=== PATIENT | female | born 2000 | race Two or more races ===

== ENCOUNTER 2024-05-02 12:36 | Observation (INO) | payer MEDICAID, OTHER ==
--- NOTE | 2024-05-02 22:11 | DVHDS2 ---
Obstetrics Discharge Summary Obstetrics Discharge Summary Date of Admission: May 02, 2024 Date of Discharge: May 02, 2024 Reason For Admission: Observational/Evaluation ( Status) Procedures: NST, Ultrasound Discharge Diagnosis: Others (early labor requested dc home and return tonight) Discharge Information: Activity (Unrestricted), Diet (Routine), Medications (None), Instructions (kick counts labor and srom precautions), Discharge to (Home), Discarge date (03/02/2024) WILDER GRAHAM DO May 02, 2024 22:11
== END 2024-05-02 15:33 | disposition home or self-care (01) ==
LOC: LDRP 12:36
PROVIDERS: ADMIT Obstetrics & Gynecology; ATTEND Obstetrics & Gynecology
DX: O62.9 Abnormality of forces of labor, unspecified (principal); Z98.890 Other specified postprocedural states; Z79.899 Other long term (current) drug therapy; Z3A.00 Weeks of gestation of pregnancy not specified
CPT/HCPCS: 59025; 81002; G0378

== ENCOUNTER 2024-05-02 18:52 | Inpatient (IN) | payer MEDICAID ==
[~2024-05-02] VITALS: Ht 165.1 cm; Wt 86.2 kg
[2024-05-02] MEDS ORDERED: NALBUPHINE HCL 10 MG/1ml INJECTION IV PRN (20:15)
[2024-05-02] MEDS ORDERED: BUTORPHANOL TARTRATE 2 MG/1 ML VIAL IV PRN ×2 (20:15)
[2024-05-02] MEDS ORDERED: NALBUPHINE HCL 10 MG/1ml INJECTION IM PRN (20:15)
[2024-05-02] MEDS ORDERED: LIDOCAINE 2%HCL (LOCAL ANESTH.) INJ 20ML MDV IJ PRN (20:15)
[2024-05-02 21:10] LABS: Urine Bacteria None Seen /hpf (None Seen); Urine WBC None Seen /hpf (0 - 5)
[2024-05-02] MEDS: LACTATED RINGER'S 1,000 ML IV SCH (21:25)
[2024-05-02 21:28] LABS: Basophils # (auto) 0 10 ^3/uL (0-0.2); Basophils % (auto) 0.1 % (0.0-2.0); Eosinophils # (auto) 0 10 ^3/uL (0-0.8); Eosinophils % (auto) 0.2 % (0.0-7.0); Hematocrit 41.2 % (36.0-46.0); Hemoglobin 13.9 g/dL (12.2-16.2); Lymphocytes % (auto) 13.5 % (10.0-50.0); Mean Corpuscular Hemoglobin 30.2 pg (28.0-32.0); Mean Corpuscular Hgb Conc. 33.7 g/dL (32.0-36.0); Mean Corpuscular Volume 89.5 fL (80.0-100.0); Monocytes # (auto) 1.1 10 ^3/uL (0-1.3); Neutrophils # (auto) 5.6 10 ^3/uL (1.6-8.6); Neutrophils % (auto) 72.2 % (37.0-80.0); Nucleated Red Blood Cells % 0.1 %; Platelet Count (auto) 207 10^3/uL (140-450); Red Blood Cells 4.61 10^6/uL (4.0-5.20); Red Cell Distribution Width 13.4 % (11.8-14.3); White Blood Cell 7.7 10^3/uL (4.4-10.8)
[2024-05-02 21:31] LABS: Urine Blood Negative /uL (Negative); Urine Clarity Clear (Clear); Urine Color Colorless (Yellow); Urine Protein, UAD Negative (Negative); Urine Specific Gravity 1.005 (1.001-1.035); Urine Urobilinogen Normal (Negative); Urine pH 6.5 (5.0-9.0)
[2024-05-02 21:45] LABS: INR 0.94 (0.9-1.15); Partial Thromboplastin Time 27.3 SEC (24.5-34.5)
[2024-05-02] MEDS ORDERED: NALOXONE HCL 0.4 MG/ML VIAL IV ONE (21:45)
[2024-05-02] MEDS ORDERED: ePHEDrine SULFATE 50 MG/ML AMP IV ONE (21:45)
[2024-05-02] MEDS ORDERED: LIDOCAINE HCL 2 %PF INJ 10ML AMP IJ ONE (21:45)
[2024-05-02 21:51] LABS: Alanine Aminotransferase 11 U/L (7-40); Albumin 3.9 g/dL (3.2-4.8); Anion Gap 7 (5-15); Aspartate Aminotransferase 19 U/L (13-40); Calcium 9.6 mg/dL (8.7-10.4); Carbon Dioxide 24 mmol/L (20-31); Chloride 106 mmol/L (98-107); Glucose 90 mg/dL (74-106); Potassium 3.8 mmol/L (3.5-5.1); Sodium 137 mmol/L (136-145)
[2024-05-02 21:52] LABS: Bilirubin, Total 0.3 mg/dL (0.2-1.0); Total Protein 6.7 g/dL (5.7-8.2)
[2024-05-02 21:59] LABS: Alkaline Phosphatase 148 U/L (46-116); Blood Urea Nitrogen 7 mg/dL (9-23)
--- NOTE | 2024-05-02 22:07 | DVHHP2 ---
OB CC & HPI Patient Identification: : 2 Para: 1 EDC: May 05, 2024 EGA: 39+ Chief Complaints: Reason for admission: active labor Admission Nurse Assessment Rev: Yes Past Medical History Cardiac: No pertinent Hx Pulmonary: No pertinent Hx Central Nervous System: No pertinent Hx GI: No pertinent Hx Hemotology/Oncology: No pertinent Hx Hepatobiliary: No pertinent Hx Psychiatric: No pertinent Hx Musculoskeletal: No pertinent Hx Rheumotologic: No pertinent Hx Infectious Disease: No peritnent Hx ENT: No pertinent Hx Renal/: No pertinent Hx Endocrine: No pertinent Hx Dermatology: No pertinent Hx OB History OB History Care: Good Care Ultrasounds: Normal mid trimester US Obstetrical Complications: None Medical Complications: None Allergies: Coded Allergies: NO KNOWN ALLERGIES (Unverified , 05/02/24) Home Meds No Active Prescriptions or Reported Meds Current Medications Current Medications Medications (Trade) Dose Ordered Sig/Rene Route PRN Reason Start Time Stop Time Status Last Admin Lactated Ringer's 1,000 ml @ 125 mls/hr Q8H IV 05/02/24 20:15 05/02/24 21:25 Nalbuphine HCl (Nubain) 10 mg Q4HP PRN IM MODERATE PAIN (4-6 PAIN SCALE) 05/02/24 20:15 Nalbuphine HCl (Nubain) 10 mg Q4HP PRN IV MODERATE PAIN (4-6 PAIN SCALE) 05/02/24 20:15 Witch Louise (Tucks) 1 pad PRN PRN TOP PERINEAL AREA DISCOMFORT 05/02/24 20:15 Sodium Lauryl Sulfate (Phisoderm) 240 ml PRN PRN TOP PERINEAL AREA DISCOMFORT 05/02/24 20:15 Benzocaine (Dermoplast) 1 applic PRN PRN TOP PERINEAL AREA DISCOMFORT 05/02/24 20:15 Butorphanol Tartrate (Stadol Injection) 1 mg Q4HPRN PRN IV MODERATE PAIN (4-6 PAIN SCALE) 05/02/24 20:15 Butorphanol Tartrate (Stadol Injection) 2 mg Q4HPRN PRN IV SEVERE PAIN (7-10 PAIN SCALE) 05/02/24 20:15 Lidocaine HCl (Xylocaine) 20 ml ONCE PRN IJ PERINEAL AREA DISCOMFORT 05/02/24 20:15 Family & Social History Family/Social History Blood Type: A+ Rubella: immune RPR/VDRL: Negative GBS Status: Negative HBsAG: Negative Review of Systems Constitutional: No symptom reported Ears, Nose, & Throat: No symptom reported Eyes: No symptom reported Pulmonary/Respiratory: No symptom reported Cardiovascular: No symptom reported Gastrointestinal: No symptom reported Genitourinary: No symptom reported Musculoskeletal: No symptom reported Skin: No symptom reported Psychiatric: No symptom reported Endocrine: No symptom reported Hemotologic/Lymphatic: No symptom reported OB Admission Exam Physical Exam HEENT: TMs Normal, Fontanelles Normal, Nasal Mucosa Normal, Eyes non-injected, Oropharynx Normal, PERRLA, Moist Membranes, EOMI Heart: Rhythm Normal Lungs: Clear Abdomen: Gravid Extremities: Normal Reflexes: Normal Cervical Dilatation: 3cm Effacement: 50% Station: -2 Membranes: Intact Heart Rate: 130's Accelerations: Accelerations Present Decelerations: No Decelerations Short Term Variability: Present Group Home Variability: Average (6-25) Contractions on Admission: None Intensity: Moderate OB Plan Plan Admitting Diagnosis: Labor Plan: Expectant Management Other Plan: Epidural requested Hoang SHARIF present in L&D WILDER GRAHAM DO May 02, 2024 22:07
[2024-05-02 22:40] LABS: Amphetamine Screen, Urine Neg (NEGATIVE); Barbiturate Scree,Urine Neg (NEGATIVE); Opiate Scree,Urine Neg (NEGATIVE)
[2024-05-02 22:41] LABS: Benzodiazephine Screen, Urine Neg (NEGATIVE); Cannabinoid Screen, Urine Neg (NEGATIVE); Cocaine Screen, Urine Neg (NEGATIVE); Phencyclidine Screen, Urine Neg (NEGATIVE)
[2024-05-02] MEDS: DERMOPLAST 60ML BOTTLE TOP PRN (23:28)
[2024-05-02] MEDS: PHISODERM TOP SOLN 240ML BTL TOP PRN (23:28)
[2024-05-02] MEDS: WITCH HAZEL-GLYCERIN PAD TOP PRN (23:28)
[2024-05-02] MEDS: fentaNYL CITRATE 100 MCG/2 ML VL IV ONE (23:30)
[2024-05-02] MEDS: ROPIVACAINE HCL 200 ML ONE (23:30)
[2024-05-02] MEDS: LACTATED RINGER'S 1,000 ML IV ONE (23:32)
--- NOTE | 2024-05-02 23:41 | EPIDURAL ---
Anesthesia Procedural Note - Epidural Start time: 22:30 End time: 23:00 Procedure description Procedure description: Called for labor analgesia. Chart reviewed, history taken and patient examined at 2230 (127/77 HR 117 spO2 99). Patient is here for induction of labor at 39+weeks. Informed consent for CSE obtained. Sitting position, sterile prep and drape. Time out done at 2232, L4-5 space infiltrated with 1% lido. Epidural needle placed with FLORENCE at 5cm at 2234 (BP 127/75 HR 111 spO2 99). 25G spinal needle +clear CSF. 15mcg fentanyl IT at 2236 (125/74 HR 108 spO2 99). Epidural catheter secured at 12cm. Aspiration and test dose (1.5% lido with epi) negative at 2241 (BP 117/68 HR 108 spO2 99). 85mcg fentanyl given at 2244. Patient reports good pain relief. 0.2% ropivacaine infusion started at 2300 (BP 114/63 HR 104 spO2 99). Will follow as needed. JENNIE ALANIS MD May 02, 2024 23:41
[2024-05-03] MEDS: LACT. RINGERS/OXYTOCIN 20UNITS 500 ML IV ONE ×2 (06:28)
--- NOTE | 2024-05-03 06:43 | LDN2 ---
Labor and Delivery Note Date 05/03/24 Age 23 2 Para 1 AB 0 EDC 39 + EGA 39+ Diagnosis labor Vaginal Delivery: VTX (MARY) Vacuum Assisted: No Placenta: Spontaneous Sex: Male Weight pending Apgars 8/9 Nuchal Cord Transected: No Amniotic Fluid: Clear Anesthesia epidural Hoang SHARIF Episiotomy: No Extension: Yes (1st vag right knick ) Repaired with 2-0 chromic fig 8 single suture EBL 300cc Labs Laboratory Tests 05/02/24 20:45: Hepatitis B Surface Antigen Negative, HIV (1&2) Antibody Negative Blood Bank 05/02/24 20:45: Blood Type A POSITIVE Complications none Conditions stable guarded Cable Splicing Technician none present or needed WILDER GRAHAM DO May 03, 2024 06:43
[2024-05-03] MEDS ORDERED: ONDANSETRON ODT 4 MG TAB PO PRN (06:45)
[2024-05-03] MEDS ORDERED: IBUPROFEN 600 MG TAB PO PRN (06:45)
[2024-05-03 07:00] VITALS: BP 135/66; PULSE 105; RESP 18; TEMP 98.1; O2SAT 99
[2024-05-03 11:30] VITALS: BP 98/59; PULSE 102; RESP 18; TEMP 98.2; O2SAT 96
[2024-05-03] MEDS: ACETAMINOPHEN 325 MG TAB PO PRN (11:53)
[2024-05-03 15:08] VITALS: BP 117/56; PULSE 93; RESP 17; TEMP 98.1; O2SAT 97
[2024-05-03 19:00] VITALS: BP 112/69; PULSE 83; RESP 16; TEMP 97.9; O2SAT 99
[2024-05-03] MEDS: DOCUSATE SOD 100 MG CAP PO SCH (21:58)
[2024-05-03 23:00] VITALS: BP 116/67; PULSE 83; RESP 16; TEMP 98.2; O2SAT 98
[2024-05-04 03:00] VITALS: BP 97/52; PULSE 79; RESP 16; TEMP 98.2; O2SAT 98
[2024-05-04] MEDS ORDERED: IBU600T PO (06:13)
--- NOTE | 2024-05-04 06:13 | DVHPN2 ---
Progress Note Date Seen: May 04, 2024 Subjective PPD#1 s/p , doing well Lochia mild. Pain controlled. vital signs Vital Sign Date Time Temp Pulse Resp B/P (MAP) Pulse Ox O2 Delivery O2 Flow Rate FiO2 05/04/24 03:00 98.2 79 16 97/52 (67) 98 98.2 05/03/24 19:00 Room Air Total Intake and Output 05/03/24 05/03/24 05/04/24 15:00 23:00 07:00 Output Total 1700 ml Balance -1700 ml medications Current Medications Medications Dose Ordered Sig/Rene Route Start Time Stop Time Status Last Admin Dose Admin Witch Louise 1 pad PRN PRN TOP 05/02/24 20:15 05/02/24 23:28 1 PAD Sodium Lauryl Sulfate 240 ml PRN PRN TOP 05/02/24 20:15 05/02/24 23:28 240 ML Benzocaine 1 applic PRN PRN TOP 05/02/24 20:15 05/02/24 23:28 1 APPLIC Ibuprofen 600 mg Q6HP PRN PO 05/03/24 06:45 Acetaminophen 650 mg Q4HP PRN PO 05/03/24 06:45 05/03/24 11:53 650 MG Ondansetron HCl 4 mg Q4HPRN PRN PO 05/03/24 06:45 Docusate Sodium 200 mg HS PO 05/03/24 22:00 05/03/24 21:58 200 MG laboratory and microbiology Laboratory Tests 05/02/24 20:45 Test 05/02/24 20:45 Range/Units Serum Glucose 90 74-106 mg/dL Objective O: AFVSS Chest: heart and lung sounds normal. Abd soft, non-tender, fundus firm, BS, no rebound or guarding, Ext Neg Homans, Non-tender, edema Lochia - minimal Labs Reviewed Assessment/Plan PPD#1 s/p doing well Plan: Supportive Care D/C planning Plan discussed with: Patient FRANCISCO MONTOYA DO May 04, 2024 06:13
--- NOTE | 2024-05-04 06:15 | DVHDS2 ---
Physician Discharge Progress N Final Diagnosis: Term , delivered Operations or Procedures: Operations or Procedures Commentary: Commentary Uncomplicated labor and delivery Normal course Condition on Discharge: Stable Disposition: Home Discharge Instructions: Diet: Regular Activity: Light activity Follow Up/Referral: [address] Luna Medications: Ibuprof 600mg PRN Follow Up Care: Discharge Statement: "Patient was advised to return to the ER or call 911 if any headaches, dizziness, shortness of breath, chest pain, abdominal pain, bleeding, fevers, or worsening of medical condition. Patient was counseled about treatment plan, medications, possible side effects, patientverbalized understanding. All questions were answered to the best of my ability. This discharge took greater then 30 minutes in planning, reviewing doc umentation, counseling the patient, and discussing with other team members." FRANCISCO MONTOYA DO May 04, 2024 06:15
[2024-05-04 07:00] VITALS: BP 98/68; PULSE 86; RESP 16; TEMP 98.2; O2SAT 97
[2024-05-04 08:06] LABS: RPR Non Reactive (Non Reactive)
[2024-05-04 11:00] VITALS: BP 114/66; PULSE 77; RESP 16; TEMP 97.6; O2SAT 97
== END 2024-05-04 13:00 | disposition home or self-care (01) | DRG 560 ==
LOC: LDRP 18:52 → OBSVTOIN 19:35 → LDRP 19:44
PROVIDERS: ADMIT Obstetrics & Gynecology; ATTEND Obstetrics & Gynecology
PROC: 10E0XZZ Delivery of Products of Conception, External Approach (ICD-10-PCS; principal; 2024-05-03)
PROC: 0HQ9XZZ Repair Perineum Skin, External Approach (ICD-10-PCS; 2024-05-03)
PROC: 3E0R3BZ Introduction of Anesthetic Agent into Spinal Canal, Percutaneous Approach (ICD-10-PCS; 2024-05-03)
PROC: 00HU33Z Insertion of Infusion Device into Spinal Canal, Percutaneous Approach (ICD-10-PCS; 2024-05-03)
DX: O70.0 First degree perineal laceration during delivery (principal); Z37.0 Single live birth; Z3A.39 39 weeks gestation of pregnancy
CPT/HCPCS: 36415; 59025; 59409; 62282; 80053; 80307; 81001; 85025; 85610; 85730; 86592; 86703; 86780; 86803; 86850; 86900; 86901; 87340; 94760; 94762; 96360; 96361; 96365; 96366; G0378; J2590